=== PATIENT | female | born 1960 ===

== ENCOUNTER 2024-04-24 05:53 | Day surgery (SDC) | payer OTHER ==
[2024-04-24] MEDS ORDERED: fentaNYL CITRATE 50 MCG/ML AMPUL IV PUSH ONE (09:15)
[2024-04-24] MEDS ORDERED: DIPHENHYDRAMINE HCL 50 MG/ML VIAL 1ML IV ONE (09:15)
[2024-04-24] MEDS ORDERED: MIDAZOLAM HCL 2 MG/2 ML VIAL IV ONE (09:15)
== END 2024-04-24 10:00 | disposition home or self-care (01) ==
LOC: AMB-ENDOS 05:53
PROVIDERS: ATTEND Colon & Rectal Surgery
DX: K63.5 Polyp of colon (principal); K62.1 Rectal polyp